=== PATIENT | female | born 1940 | race Caucasian/White ===

== ENCOUNTER 2020-11-03 10:41 | Inpatient (IN) ==
[2020-11-03] MEDS ORDERED: ONDANSETRON 4 MG/2 ML VIAL IV STA (11:10)
[2020-11-03] MEDS ORDERED: SODIUM CHLORIDE 0.9% 1,000 ML IV STA (11:10)
[2020-11-03 11:32] LABS: Bilirubin,Urine Negative (Negative); Blood, Urine Negative (Negative); Glucose,Urine (UA) Negative (Negative); Ketones,Urine Negative (Negative); Nitrite,Urine Negative (Negative); Protein,Urine Negative; RBC,Urine <1 /HPF (0-4); Urine Appearance CLEAR (Clear); Urine Color Colorless (Yellow); Urine Specific Gravity 1.002 (1.001-1.035); Urine Urobilinogen < 2.0 EU/DL (0.2-1.0)
[2020-11-03 12:07] LABS: Basophils # 0.1 10*3/uL (0.0-0.2); Basophils % 0.9 % (0.0-0.8); Eosinophils # 0.3 10*3/uL (0.0-0.87); Eosinophils % 5.2 % (0.00-10.9); Hematocrit 39.1 VOL% (35.7-47.0); Hemoglobin 13.1 GM/DL (12.0-16.0); Immature Granulocytes % 0.2 %; Immature Granulocytes Absolute 0.01 #; Lymphocytes # 1.6 10*3/uL (1.4-4.0); Lymphocytes % 29.5 % (21.3-54.2); Mean Corpuscular HGB Conc 33.5 GM/DL (32-36); Mean Corpuscular Volume 93.3 FL (87-102); Mean Platelet Volume 9.7 FL (9.6-12.0); Monocytes % 10.7 % (1.7-12.7); Neutrophils % 53.5 % (38.7-73.9); Platelet Count 250 T/CUMM (130-400); Red Blood Count 4.19 MC/CUMM (3.8-5.5); Red Cell Distribution Width 12.4 % (9.3-17.3); White Blood Count 5.4 T/CUMM (4-12)
[2020-11-03 12:23] LABS: Alanine Aminotransferase 24 U/L (13-56); Albumin 3.6 G/DL (3.4-5.0); Alkaline Phosphatase 101 U/L (45-117); Aspartate Amino Transferase 20 U/L (0-37); Bilirubin,Total < 0.39 MG/DL (0.2-1.0); Blood Urea Nitrogen 8 MG/DL (7-18); Calcium 8.9 MG/DL (8.5-10.1); Carbon Dioxide 28 MMOL/L (21-32); Estimated Glom Filtration Rate 67 ML/MIN; Glucose 90 MG/DL (74-106); Osmolality,Calculated 278.3 MOS/KG (273-304); Potassium 4.2 MMOL/L (3.5-5.1); Sodium 141 MMOL/L (136-145); Total Protein 6.9 G/DL (6.4-8.2)
[2020-11-03] MEDS ORDERED: DEXTROSE 50% 25 GM/50 ML VIAL IV PRN (14:33)
[2020-11-03] MEDS ORDERED: ONDANSETRON 4 MG/2 ML VIAL IV PRN (14:33)
[2020-11-03] MEDS ORDERED: GLUCAGON 1 MG VIAL IM PRN (14:33)
[2020-11-03] MEDS ORDERED: POLYETHYLENE GLYCOL POWDER 17 GM PACK PO PRN (14:36)
[2020-11-03] MEDS: SODIUM CHLORIDE 0.9% 1,000 ML IV SCH (19:30)
[2020-11-03] MEDS: ROSUVASTATIN 20 MG TABLET PO SCH (21:35)
[2020-11-04 06:13] LABS: Basophils # 0.1 10*3/uL (0.0-0.2); Basophils % 0.9 % (0.0-0.8); Eosinophils # 0.4 10*3/uL (0.0-0.87); Eosinophils % 7.6 % (0.00-10.9); Hematocrit 35.9 VOL% (35.7-47.0); Hemoglobin 11.6 GM/DL (12.0-16.0); Immature Granulocytes % 0.4 %; Immature Granulocytes Absolute 0.02 #; Lymphocytes # 1.9 10*3/uL (1.4-4.0); Lymphocytes % 34.4 % (21.3-54.2); Mean Corpuscular HGB Conc 32.3 GM/DL (32-36); Mean Platelet Volume 9.8 FL (9.6-12.0); Neutrophils % 45.7 % (38.7-73.9); Platelet Count 254 T/CUMM (130-400); Red Blood Count 3.74 MC/CUMM (3.8-5.5); Red Cell Distribution Width 12.3 % (9.3-17.3); White Blood Count 5.6 T/CUMM (4-12)
[2020-11-04 06:52] LABS: Bilirubin,Total 0.6 MG/DL (0.2-1.0); Calcium 8.4 MG/DL (8.5-10.1); Osmolality,Calculated 281.1 MOS/KG (273-304); Potassium 3.9 MMOL/L (3.5-5.1); Risk Ratio 2.67; Thyroid Stimulating Hormone 0.341 uIU/ml (0.358-3.74); Total Protein 5.7 G/DL (6.4-8.2); VLDL CHOLESTEROL 19.8 MG/DL
[2020-11-04] MEDS: SODIUM CHLORIDE 0.9% 1,000 ML IV SCH ×3 (07:56→18:39)
[2020-11-04] MEDS ORDERED: ACETAMINOPHEN 325 MG TABLET PO PRN (08:44)
[2020-11-04] MEDS: LACTOBACILLUS ACIDOPHILUS/BULGARICUS CAPLET PO SCH (08:45)
[2020-11-04] MEDS: CYANOCOBALAMIN 500 MCG TABLET PO SCH (08:45)
[2020-11-04] MEDS: PANTOPRAZOLE 40 MG TABLET PO SCH (08:46)
[2020-11-04] MEDS: CALCIUM (CARBONATE)/VITAMIN D 600 MG-400 UNIT TABLET PO SCH (08:46)
[2020-11-04] MEDS: CHOLECALCIFEROL 1,000 UNIT TABLET PO SCH (08:46)
[2020-11-04] MEDS: FERROUS SULFATE 325 MG TABLET PO SCH (08:46)
[2020-11-04] MEDS: VENLAFAXINE XR 37.5 MG CAPSULE PO SCH (08:46)
[2020-11-04] MEDS: MULTIVITAMIN (CENTRUM) TABLET PO SCH (08:46)
[2020-11-04] MEDS: ASCORBIC ACID 500 MG TABLET PO SCH (08:47)
[2020-11-04] MEDS: LEVOTHYROXINE 50 MCG TABLET PO SCH (08:47)
[2020-11-04] MEDS ORDERED: [UNRECOGNIZED DRUG - OTHER] PO SCH (09:00)
[2020-11-04] MEDS ORDERED: PANTOPRAZOLE 40 MG TABLET PO SCH (09:00)
[2020-11-04] MEDS: ROSUVASTATIN 20 MG TABLET PO SCH (21:01)
[2020-11-05] MEDS: SODIUM CHLORIDE 0.9% 1,000 ML IV SCH (00:20)
[2020-11-05 06:15] LABS: Basophils # 0.1 10*3/uL (0.0-0.2); Eosinophils # 0.6 10*3/uL (0.0-0.87); Eosinophils % 10.1 % (0.00-10.9); Hematocrit 36.9 VOL% (35.7-47.0); Immature Granulocytes % 0.3 %; Immature Granulocytes Absolute 0.02 #; Lymphocytes % 35.1 % (21.3-54.2); Mean Corpuscular HGB Conc 32.5 GM/DL (32-36); Mean Corpuscular Volume 95.1 FL (87-102); Mean Platelet Volume 9.8 FL (9.6-12.0); Monocytes % 10.5 % (1.7-12.7); Platelet Count 248 T/CUMM (130-400); Red Blood Count 3.88 MC/CUMM (3.8-5.5); Red Cell Distribution Width 12.2 % (9.3-17.3); White Blood Count 5.8 T/CUMM (4-12)
[2020-11-05 06:41] LABS: Calcium 8.7 MG/DL (8.5-10.1); Osmolality,Calculated 280.1 MOS/KG (273-304); Potassium 3.8 MMOL/L (3.5-5.1)
[2020-11-05] MEDS: CHOLECALCIFEROL 1,000 UNIT TABLET PO SCH (08:54)
[2020-11-05] MEDS: CYANOCOBALAMIN 500 MCG TABLET PO SCH (08:55)
[2020-11-05] MEDS: MULTIVITAMIN (CENTRUM) TABLET PO SCH (08:55)
[2020-11-05] MEDS: VENLAFAXINE XR 37.5 MG CAPSULE PO SCH (08:55)
[2020-11-05] MEDS: LACTOBACILLUS ACIDOPHILUS/BULGARICUS CAPLET PO SCH (08:55)
[2020-11-05] MEDS: CALCIUM (CARBONATE)/VITAMIN D 600 MG-400 UNIT TABLET PO SCH (08:55)
[2020-11-05] MEDS: ASCORBIC ACID 500 MG TABLET PO SCH (08:56)
[2020-11-05] MEDS: FERROUS SULFATE 325 MG TABLET PO SCH (08:56)
[2020-11-05] MEDS: PANTOPRAZOLE 40 MG TABLET PO SCH (08:56)
[2020-11-05] MEDS: LEVOTHYROXINE 50 MCG TABLET PO SCH (08:59)
[2020-11-05 11:41] VITALS: BP 133/63
== END 2020-11-05 13:47 | disposition home or self-care (01) | DRG 884 ==
LOC: N.ED 10:41 → SUATTDRO 14:33 → N.EDINP 14:33 → N.4E 16:32
PROVIDERS: ADMIT Family Medicine; ATTEND Internal Medicine